=== PATIENT | female | born 1975 | race Caucasian/White ===

== ENCOUNTER → 2017-07-06 | Outpatient (CLI) | payer BC | END | disposition home or self-care (01) | LOC: CFH 12:05 | PROVIDERS: ATTEND Nurse Practitioner Women's Health | DX: N63.22 Unspecified lump in the left breast, upper inner quadrant (principal); Z80.3 Family history of malignant neoplasm of breast | CPT/HCPCS: 76642; 77066 ==

== ENCOUNTER 2018-09-13 15:26 | Emergency (ER) | payer BC ==
[~2018-09-13] VITALS: Ht 177.8 cm; Wt 104.0 kg
[2018-09-13 16:50] LABS: BASOPHILS # (AUTO) 0.04 x10^3/uL (0-0.1); BASOPHILS % (AUTO) 1 % (0-1); EOSINOPHILS # (AUTO) 0.19 x10^3/uL (0-0.4); EOSINOPHILS % (AUTO) 3 % (1-7); LYMPHOCYTES # (AUTO) 2.47 x10^3/uL (1-3.4); LYMPHOCYTES % (AUTO) 32 % (22-44); MD NO; MEAN CORPUSCULAR HEMOGLOBIN 29.6 pg (27.0-34.8); MEAN CORPUSCULAR VOLUME 89.6 fL (80-100); MEAN PLATELET VOLUME 9.4 fL (7.4-10.4); MONOCYTES # (AUTO) 0.63 x10^3/uL (0.2-0.8); MONOCYTES % (AUTO) 8 % (2-9); NEUTROPHILS # (AUTO) 4.34 x10^3/uL (1.8-6.8); NEUTROPHILS % (AUTO) 57 % (42-75); PLATELET COUNT 225 x10^3/uL (130-400); RED BLOOD COUNT 4.81 x10^6/uL (3.82-5.3); RED CELL DISTRIBUTION WIDTH 13.9 % (9.6-15.2)
[2018-09-13 16:50] LABS: MICROSCOPIC NOT IND
[2018-09-13 16:53] LABS: CULTURE INDICATED? NO
[2018-09-13 16:59] LABS: ALANINE AMINOTRANSFERASE 31 U/L (12-78); ALBUMIN 3.9 g/dL (3.4-5.0); ANION GAP 6 mmol/L (5-15); CALCIUM 8.8 mg/dL (8.5-10.1); CHLORIDE 110 mmol/L (98-107); CREATININE 0.95 mg/dL (0.55-1.02)
[2018-09-13 17:04] LABS: ALKALINE PHOSPHATASE 71 U/L (45-117); BILIRUBIN,TOTAL 0.2 mg/dL (0.2-1.0); TOTAL PROTEIN 7.1 g/dL (6.4-8.2)
[2018-09-13] MEDS ORDERED: DULO60CA55 PO (18:48)
[2018-09-13] MEDS ORDERED: LIOT5TAB3 PO (18:48)
[2018-09-13] MEDS ORDERED: RIVA20TA PO (18:48)
[2018-09-13] MEDS ORDERED: LEVO137T2 PO ×2 (18:48→18:49)
--- NOTE | 2018-09-13 18:50 | NUR ---
Pt to room with strong independent gait, daughter at bedside. Chart up for provider review. Med rec complete.
--- NOTE | 2018-09-13 19:30 | NUR ---
REPORT FROM SOBEIDA MICHAELS. PT RESTING AND WAITING FOR MD TO EVALUATE.
[2018-09-13 20:18] VITALS: BP 138/79
[2018-09-13 20:25] LABS: TROPONIN I < 0.015 ng/mL (0.000-0.045)
== END 2018-09-13 21:01 | disposition home or self-care (01) ==
LOC: ED 20:28
DX: R10.12 Left upper quadrant pain (principal)
CPT/HCPCS: 36415; 76700; 80053; 81003; 83690; 84484; 84703; 85025; 93005; 99284

== ENCOUNTER 2018-10-21 23:28 | Emergency (ER) | payer BC ==
[~2018-10-21] VITALS: Ht 177.8 cm; Wt 101.5 kg
[2018-10-22 00:33] VITALS: BP 118/67
== END 2018-10-22 01:09 | disposition home or self-care (01) ==
LOC: ED 23:49
DX: T63.441A Toxic effect of venom of bees, accidental (unintentional), initial encounter (principal); Y92.89 Other specified places as the place of occurrence of the external cause
CPT/HCPCS: 99283; J7512; Q0163

== ENCOUNTER → 2019-01-20 | Outpatient (CLI) | payer BC ==
[~2019-01-20] MED LIST: DULO60CA56 PO; LEVO137T2 PO; LIOT5TAB11 PO; RIVA20TA PO
== END | disposition home or self-care (01) ==
LOC: CFH 14:11
PROVIDERS: ATTEND Obstetrics & Gynecology Gynecology
DX: Z12.31 Encounter for screening mammogram for malignant neoplasm of breast (principal); N60.01 Solitary cyst of right breast; N60.02 Solitary cyst of left breast; Z80.3 Family history of malignant neoplasm of breast
CPT/HCPCS: 76641; 77063; 77067

== ENCOUNTER 2020-09-06 10:32 | Emergency (ER) | payer BC ==
[~2020-09-06] VITALS: Ht 177.8 cm; Wt 81.5 kg
[2020-09-06 11:13] LABS: BASOPHILS % (AUTO) 1 % (0-1); EOSINOPHILS % (AUTO) 0 % (1-7); LYMPHOCYTES % (AUTO) 16 % (22-44); MEAN CORPUSCULAR HEMOGLOBIN 28.9 pg (27.0-34.8); MEAN CORPUSCULAR HGB CONC 33.1 g/dL (32.4-35.8); MEAN PLATELET VOLUME 9.4 fL (7.4-10.4); MONOCYTES % (AUTO) 9 % (2-9); NEUTROPHILS % (AUTO) 74 % (42-75); PLATELET COUNT 219 x10^3/uL (130-400); RED BLOOD COUNT 4.67 x10^6/uL (3.82-5.3); RED CELL DISTRIBUTION WIDTH 15.8 % (9.6-15.2)
[2020-09-06 11:21] LABS: ANION GAP 6 mmol/L (5-15); CALCIUM 8.9 mg/dL (8.5-10.1); CHLORIDE 108 mmol/L (98-107)
[2020-09-06 12:48] VITALS: BP 123/68
== END 2020-09-06 12:49 | disposition home or self-care (01) ==
LOC: ED 12:43
DX: N60.02 Solitary cyst of left breast (principal)
CPT/HCPCS: 36415; 76642; 80048; 85025; 99284